=== PATIENT | female | born 1945 | race Caucasian/White ===

== ENCOUNTER 2016-06-18 08:10 | Outpatient (CLI) | payer MEDICARE, OTHER | END 2016-06-18 08:11 | disposition home or self-care (01) | DX: E78.5 Hyperlipidemia, unspecified (principal); R73.9 Hyperglycemia, unspecified; E03.9 Hypothyroidism, unspecified ==

== ENCOUNTER 2016-10-11 09:06 | Outpatient (CLI) | payer MEDICARE, OTHER ==
[2016-10-11 09:59] LABS: HEMOGLOBIN A1C 0.66 g/dL
== END 2016-10-11 09:07 | disposition home or self-care (01) ==
LOC: LAB 09:06
PROVIDERS: ATTEND Family Medicine
DX: E11.9 Type 2 diabetes mellitus without complications (principal)
CPT/HCPCS: 36415; 83036

== ENCOUNTER 2016-10-14 14:35 | Outpatient (CLI) | payer MEDICARE, OTHER ==
[2016-10-18 10:13] LABS: TEST RESULT REPORT (())
== END 2016-10-14 14:36 | disposition home or self-care (01) ==
LOC: LAB.WCP 14:35
PROVIDERS: ATTEND Family Medicine
DX: B00.9 Herpesviral infection, unspecified (principal)
CPT/HCPCS: 81599

== ENCOUNTER 2016-10-30 10:33 | Outpatient (CLI) | payer MEDICARE, OTHER ==
--- NOTE | 2016-10-31 13:52 | Mammography Report ---
DIGITAL SCREENING MAMMOGRAM: 10/30/2016 CLINICAL INDICATION: A 71-year-old with personal history of benign right breast biopsy, for screening . COMPARISON: 07/2014. TECHNIQUE: Routine CC and MLO projections were obtained of the breasts. FINDINGS: The breasts again demonstrate heterogeneously dense fibroglandular parenchyma. Postbiopsy changes in the right breast are stable. Coarse and punctate, typically benign calcifications are pres ent. No suspicious masses, clustered microcalcifications, or regions of architectural distortion are identified. IMPRESSION: BENIGN FINDINGS. RECOMMENDATION: ROUTINE ANNUAL SCREENING UNLESS OTHERWISE CLINICALLY INDICATED. BIRADS CATEGORY 2-BENIGN FINDINGS. STANDARD QUALIFYING STATEMENTS 1. This examination was reviewed with the aid of Computer-Aided Detection (CAD). 2. A negative or benign imaging report should not delay biopsy if clinically suspicious findings are present. Consider surgical consultation if warranted. More than 5% of cancers are not identified by i maging. 3. Dense breasts may obscure an underlying neoplasm. JOB #: [id number] EXT JOB #:[id number]
== END 2016-10-30 10:34 | disposition home or self-care (01) ==
LOC: DI.N 10:33
PROVIDERS: ATTEND Family Medicine
DX: Z12.31 Encounter for screening mammogram for malignant neoplasm of breast (principal)
CPT/HCPCS: 77067

== ENCOUNTER 2018-01-25 08:55 | Outpatient (CLI) | payer MEDICARE, OTHER ==
[2018-01-25 13:42] LABS: BASOPHILS % (AUTO) 0.7 %; EOSINOPHILS # (AUTO) 0.2 10^3/uL (0.0-0.7); EOSINOPHILS % (AUTO) 2.9 %; HGB - HEMOGLOBIN 14.2 g/dL (12.0-16.0); LYMPHOCYTES % (AUTO) 37.7 %; MEAN CORPUSCULAR HEMOGLOBIN 31.3 pg (27.0-31.0); MEAN CORPUSCULAR HGB CONC 33.6 g/dL (32.0-36.0); MEAN CORPUSCULAR VOLUME 92.9 fL (81.0-99.0); MEAN PLATELET VOLUME 8.3 fL (7.9-10.8); MONOCYTES # (AUTO) 0.3 10^3/uL (0.0-1.0); MONOCYTES % (AUTO) 6.6 %; NEUTROPHILS # (AUTO) 2.7 10^3/uL (1.5-6.6); NEUTROPHILS % (AUTO) 52.1 %; PLT - PLATELET COUNT 255 10^3/uL (130-450); RED BLOOD COUNT 4.53 10^6/uL (4.20-5.40); WHITE BLOOD COUNT 5.3 x10^3/uL (4.8-10.8)
[2018-01-25 14:01] LABS: ALBUMIN 4.2 g/dL (3.2-5.5); ALBUMIN/GLOBULIN RATIO 1.3 (1.0-2.2); ALKALINE PHOSPHATASE 79 IU/L (42-121); ALT ALANINE AMINOTRANSFERASE 35 IU/L (10-60); AST ASPARTATE AMINOTRANSFERASE 32 IU/L (10-42); BILIRUBIN,TOTAL 0.4 mg/dL (0.2-1.0); BUN - BLOOD UREA NITROGEN 13 mg/dL (6-20); CALCIUM 9.3 mg/dL (8.5-10.3); CARBON DIOXIDE - CO2 27 mmol/L (21-32); CHLORIDE 104 mmol/L (101-111); CHOL/HDL RATIO 4.6 (<4.4); CHOLESTEROL 239 mg/dL; CREATININE 0.7 mg/dL (0.4-1.0); GFR - MDRD 82 (>89); GLUCOSE 140 mg/dL (70-100); HDL CHOLESTEROL 52 mg/dL; LDL CHOLESTEROL,CALCULATED 141 mg/dL; LDL/HDL RATIO 2.7 (<4.4); SODIUM 138 mmol/L (135-145); TOTAL PROTEIN 7.5 g/dL (6.7-8.2); VLDL CHOLESTEROL 46 mg/dL
[2018-01-25 14:45] LABS: HB2 TOTAL 15.1 g/dL; HEMOGLOBIN A1C 0.72 g/dL; HEMOGLOBIN A1C % 6.5 % (4.6-6.2)
== END 2018-01-25 08:56 | disposition home or self-care (01) ==
LOC: LAB.WCP 08:55
PROVIDERS: ATTEND Family Medicine
DX: I10 Essential (primary) hypertension (principal); E11.9 Type 2 diabetes mellitus without complications; E78.5 Hyperlipidemia, unspecified; E03.9 Hypothyroidism, unspecified
CPT/HCPCS: 36415; 80053; 80061; 83036; 83721; 84443; 85025

== ENCOUNTER 2018-03-11 10:24 | Outpatient (CLI) | payer MEDICARE, OTHER ==
--- NOTE | 2018-03-11 16:33 | DEXA Report ---
Reason: ASYMPTOMATIC POSTMENOPAUSAL STATUS Procedure Date: 03/11/2018 Accession Number: [id number] / [id number] Procedure: DEX - Dexa Spine and/or Hip CPT Code: FULL RESULT: EXAM: Dexa Spine and/or Hip DATE: 03/11/2018 11:09 AM CLINICAL HISTORY: ASYMPTOMATIC POSTMENOPAUSAL STATUS TECHNIQUE: Dual energy x-ray absorptiometry (DXA) was performed on a [employer] System. Regions measured are the AP Spine, femoral neck, and if needed forearm. COMPARISON: None. In accordance with the International Society for Clinical Densitometry (ISCD) guidelines, data from previous exams may be reanalyzed using current recommendations and techniques. This is done to allow a more accurate basis for comparison with the current study. FINDINGS: The data for the lumbar spine is as follows: BMD (g/cm/cm) T-SCORE Z-SCORE REGION L1 1.066 -0.5 0.3 L2 1.414 1.8 2.6 L3 1.035 -1.4 -0.5 L4 1.057 -1.2 -0.3 TOTAL 1.137 -0.4 0.5 NOTE: All evaluable vertebrae are used for classification The data for the hip is as follows: BMD (g/cm/cm) T-SCORE Z-SCORE REGION Neck 0.851 -1.3 -0.1 TOTAL 0.887 -1.0 0.1 NOTE: The femoral neck or total proximal femur, whichever is lowest, is used for classification. IMPRESSION: THE WHO CLASSIFICATION BASED ON THE INTERNATIONAL REFERENCE STANDARD IS OSTEOPENIA. THE FRACTURE RISK IS INCREASED. RECOMMENDATION: Patients with diagnosis of osteoporosis or osteopenia should have regular bone mineral density assessment. For those eligible for Medicare, routine testing is allowed once every 2 years. Testing frequency can be increased for patients who have rapidly progressing disease or for those who are receiving medical therapy to restore bone mass. COMMENT: World Health Organization (WHO) definitions for osteoporosis and osteopenia: NORMAL BMD: T-score at -1.0 or higher, fracture risk is low OSTEOPENIA BMD: T-score between -1.0 and -2.5, fracture risk is increased. OSTEOPOROSIS BMD: T-score at -2.5 or lower, fracture risk is high. National Osteoporosis Foundation recommends: 1. Obtain adequate dietary calcium (at least 1200 mg per day) and vitamin D (400-800 international units per day). 2. Participate, as appropriate, in regular weightbearing and muscle-strengthening exercise. 3. Avoid tobacco use and reduce alcohol and caffeine intake. 4. For more detailed information see the website at www.NOF.org.
== END 2018-03-11 10:25 | disposition home or self-care (01) ==
LOC: DI 10:24
PROVIDERS: ATTEND Family Medicine
DX: M85.89 Other specified disorders of bone density and structure, multiple sites (principal); Z78.0 Asymptomatic menopausal state
CPT/HCPCS: 77080

== ENCOUNTER 2019-05-04 08:18 | Outpatient (CLI) | payer MEDICARE, OTHER ==
[2019-05-04 12:37] LABS: BASOPHILS % (AUTO) 0.4 %; EOSINOPHILS # (AUTO) 0.2 10^3/uL (0.0-0.7); EOSINOPHILS % (AUTO) 3.3 %; HGB - HEMOGLOBIN 13.6 g/dL (12.0-16.0); LYMPHOCYTES # (AUTO) 1.6 10^3/uL (1.5-3.5); LYMPHOCYTES % (AUTO) 35.2 %; MEAN CORPUSCULAR HEMOGLOBIN 30.8 pg (27.0-31.0); MEAN CORPUSCULAR HGB CONC 31.3 g/dL (32.0-36.0); MEAN CORPUSCULAR VOLUME 98.6 fL (81.0-99.0); MEAN PLATELET VOLUME 10.7 fL (7.9-10.8); MONOCYTES # (AUTO) 0.3 10^3/uL (0.0-1.0); MONOCYTES % (AUTO) 7.2 %; NEUTROPHILS # (AUTO) 2.4 10^3/uL (1.5-6.6); NEUTROPHILS % (AUTO) 53.5 %; PLT - PLATELET COUNT 245 10^3/uL (130-450); RED BLOOD COUNT 4.41 10^6/uL (4.20-5.40); RED CELL DISTRIBUTION WIDTH 12.7 % (12.0-15.0); WHITE BLOOD COUNT 4.6 x10^3/uL (4.8-10.8)
[2019-05-04 13:03] LABS: ALBUMIN 4.1 g/dL (3.2-5.5); ALBUMIN/GLOBULIN RATIO 1.2 (1.0-2.2); ALKALINE PHOSPHATASE 74 IU/L (42-121); ALT ALANINE AMINOTRANSFERASE 48 IU/L (10-60); AST ASPARTATE AMINOTRANSFERASE 41 IU/L (10-42); BILIRUBIN,TOTAL 0.8 mg/dL (0.2-1.0); BUN - BLOOD UREA NITROGEN 14 mg/dL (6-20); CALCIUM 9.1 mg/dL (8.5-10.3); CARBON DIOXIDE - CO2 27 mmol/L (21-32); CHLORIDE 107 mmol/L (101-111); CHOL/HDL RATIO 4.5 (<4.4); CHOLESTEROL 214 mg/dL; CREATININE 0.8 mg/dL (0.4-1.0); GFR - MDRD 70 (>89); GLUCOSE 126 mg/dL (70-100); HDL CHOLESTEROL 48 mg/dL; LDL CHOLESTEROL,CALCULATED 137 mg/dL; LDL/HDL RATIO 2.9 (<4.4); SODIUM 141 mmol/L (135-145); TOTAL PROTEIN 7.4 g/dL (6.7-8.2); VLDL CHOLESTEROL 29 mg/dL
[2019-05-04 13:07] LABS: HB2 TOTAL 13.8 g/dL; HEMOGLOBIN A1C 0.68 g/dL; HEMOGLOBIN A1C % 6.7 % (4.6-6.2)
[2019-05-04 13:12] LABS: THYROID STIMULATING HORMONE 2.15 uIU/mL (0.34-5.60)
[2019-05-04 13:14] LABS: FREE T4 (FREE THYROXINE) 1.02 ng/dL (0.58-1.64)
== END 2019-05-04 23:59 | disposition home or self-care (01) ==
LOC: LAB.WCP 08:18
PROVIDERS: ATTEND Family Medicine
DX: E11.9 Type 2 diabetes mellitus without complications (principal); I10 Essential (primary) hypertension; E03.9 Hypothyroidism, unspecified
CPT/HCPCS: 36415; 80053; 80061; 82043; 83036; 83721; 84439; 84443; 85025

== ENCOUNTER 2020-12-04 08:00 | Outpatient (CLI) | payer MEDICARE, OTHER ==
[2020-12-04 13:01] LABS: BASOPHILS % (AUTO) 0.6 %; EOSINOPHILS # (AUTO) 0.1 10^3/uL (0.0-0.7); EOSINOPHILS % (AUTO) 2.7 %; HCT - HEMATOCRIT 43.5 % (37.0-47.0); HGB - HEMOGLOBIN 14.1 g/dL (12.0-16.0); LYMPHOCYTES # (AUTO) 1.9 10^3/uL (1.5-3.5); LYMPHOCYTES % (AUTO) 39.7 %; MEAN CORPUSCULAR HEMOGLOBIN 30.9 pg (27.0-31.0); MEAN CORPUSCULAR HGB CONC 32.4 g/dL (32.0-36.0); MEAN CORPUSCULAR VOLUME 95.2 fL (81.0-99.0); MEAN PLATELET VOLUME 10.1 fL (7.9-10.8); MONOCYTES # (AUTO) 0.4 10^3/uL (0.0-1.0); MONOCYTES % (AUTO) 8.4 %; NEUTROPHILS # (AUTO) 2.3 10^3/uL (1.5-6.6); NEUTROPHILS % (AUTO) 48.6 %; PLT - PLATELET COUNT 254 10^3/uL (130-450); RED BLOOD COUNT 4.57 10^6/uL (4.20-5.40); RED CELL DISTRIBUTION WIDTH 12.2 % (12.0-15.0); WHITE BLOOD COUNT 4.7 x10^3/uL (4.8-10.8)
[2020-12-04 13:19] LABS: ESTIMATED AVERAGE GLUCOSE 157 mg/dL (70-100); HEMOGLOBIN A1c% 7.1 % (4.27-6.07)
[2020-12-04 13:25] LABS: ALBUMIN 4.4 g/dL (3.2-5.5); ALBUMIN/GLOBULIN RATIO 1.5 (1.0-2.2); ALKALINE PHOSPHATASE 88 IU/L (42-121); ALT ALANINE AMINOTRANSFERASE 45 IU/L (10-60); AST ASPARTATE AMINOTRANSFERASE 40 IU/L (10-42); BILIRUBIN,TOTAL 0.8 mg/dL (0.2-1.0); BUN - BLOOD UREA NITROGEN 11 mg/dL (6-20); CALCIUM 9.3 mg/dL (8.5-10.3); CARBON DIOXIDE - CO2 25 mmol/L (21-32); CHLORIDE 104 mmol/L (101-111); CHOL/HDL RATIO 4.4 (<4.4); CHOLESTEROL 230 mg/dL; CREATININE 0.7 mg/dL (0.4-1.0); GFR - MDRD 81 (>89); GLUCOSE 162 mg/dL (70-100); HDL CHOLESTEROL 52 mg/dL; LDL CHOLESTEROL,CALCULATED 140 mg/dL; LDL/HDL RATIO 2.7 (<4.4); POTASSIUM 3.8 mmol/L (3.5-5.0); SODIUM 139 mmol/L (135-145); TOTAL PROTEIN 7.4 g/dL (6.7-8.2); TRIGLYCERIDES 191 mg/dL; VLDL CHOLESTEROL 38 mg/dL
[2020-12-04 13:26] LABS: CREATININE,URINE 92.9 mg/dL; MICROALBUM/CREATININE RATIO,UR 21.5 ug/mg (<30.0)
[2020-12-04 13:27] LABS: THYROID STIMULATING HORMONE 0.94 uIU/mL (0.34-5.60)
[2020-12-05 12:47] LABS: HEPATITIS C ANTIBODY NON-REACTIVE (NON-REACTIVE)
== END 2020-12-04 23:59 | disposition home or self-care (01) ==
LOC: LAB.WCP 08:00
PROVIDERS: ATTEND Family Medicine
DX: Z01.84 Encounter for antibody response examination (principal); E11.9 Type 2 diabetes mellitus without complications
CPT/HCPCS: 36415; 80053; 80061; 82043; 82570; 83036; 83721; 84443; 85025; 86803

== ENCOUNTER 2021-06-04 11:00 | Outpatient (CLI) | payer MEDICARE, OTHER | END 2021-06-04 23:59 | disposition home or self-care (01) | LOC: LAB.N 11:00 | PROVIDERS: ATTEND Physician Assistant Medical | DX: N30.00 Acute cystitis without hematuria (principal) | CPT/HCPCS: 87086 ==

== ENCOUNTER 2021-06-07 08:00 | Outpatient (CLI) | payer MEDICARE, OTHER | END 2021-06-07 23:59 | LOC: LAB.N 08:00 | PROVIDERS: ATTEND Physician Assistant | DX: R39.9 Unspecified symptoms and signs involving the genitourinary system (principal) | CPT/HCPCS: 87086 ==

== ENCOUNTER 2023-09-12 14:22 | Emergency (ER) | payer MEDICARE, OTHER ==
--- NOTE | 2023-09-12 14:52 | ED Physician Documentation ---
PD HPI ABD PAIN - Stated complaint Stated Complaint: BACK PX - Chief complaint Chief Complaint: Abd Pain - History obtained from History obtained from: Patient - Additional information Additional information: This is a relatively healthy 78-year-old woman with history of pacemaker. Hypothyroidism, and remote hysterectomy who developed left flank pain rating to the left groin suddenly this morning. With that she had a sensation of having to have a bowel movement but only had a small bowel movement. She tried a laxative which was unhelpful. Subsequently tried some ibuprofen which was minimally helpful. She denies urinary complaints. No fevers. This is nothing she is ever had before. No history of renal colic. Has never had a colonoscopy. PD PAST MEDICAL HISTORY - Past Medical History Past Medical History: Yes Cardiovascular: Hypertension, High cholesterol, Arrhythmia Endocrine/Autoimmune: Type 2 diabetes, HyPOthyroidism Musculoskeletal: Osteoarthritis - Past Surgical History Past Surgical History: Yes General: Other /[employer]: section Cardiovascular: Pacemaker - Present Medications Home Medications: Ambulatory Orders Medication Instructions Recorded Confirmed Levothyroxine [Synthroid] 88 mcg PO QDAC 11/27/15 01/04/21 Valacyclovir HCl [Valtrex] 500 mg PO BID PRN 01/04/21 01/04/21 HYDROcod/ACETAM 5/325 [[place] 5/325] 1 - 2 tab PO Q6H PRN #15 tablet 09/12/23 Ondansetron Odt [Zofran] 4 mg TL Q6H PRN #10 tablet 09/12/23 - Allergies Allergies/Adverse Reactions: Allergies Allergy/AdvReac Type Severity Reaction Status Date / Time Penicillins Allergy Unknown Verified 09/12/23 14:36 - Social History Does the pt smoke?: No Smoking Status: Never smoker Does the pt drink ETOH?: No Does the pt have substance abuse?: No - Immunizations Immunizations are current?: No Immunizations: TDAP >10years/unknown PD ED PE NORMAL - Vitals Vital signs reviewed: Yes - General General: Alert and oriented X 3, No acute distress - Cardiac Cardiac: RRR, No murmur - Respiratory Respiratory: No respiratory distress, Clear bilaterally - Abdomen Abdomen: Normal bowel sounds, Soft, Other (Mild tenderness in the left lower quadrant without surgical signs, also mild left flank tenderness. No shingles rash.) - Neuro Neuro: Alert and oriented X 3, Normal speech Results - Vitals Vitals: Vital Signs - 24 hr 09/12/23 09/12/23 14:29 14:36 Temperature 36.5 C 36.5 C Heart Rate 70 70 Respiratory 14 14 Rate Blood Pressure 200/95 H 200/95 H O2 Saturation 96 96 Oxygen O2 Source Room air - Labs Labs: Laboratory Tests 09/12/23 09/12/23 09/12/23 15:00 15:00 15:38 WBC 9.8 RBC 4.82 Hgb 14.4 Hct 45.3 MCV 94.0 MCH 29.9 MCHC 31.8 L RDW 12.0 Plt Count 236 MPV 10.0 Neut # (Auto) 8.2 H Lymph # (Auto) 1.2 L Cloud # (Auto) 0.4 Eos # (Auto) 0.0 Baso # (Auto) 0.0 Absolute Nucleated RBC 0.00 Nucleated RBC % 0.0 Sodium 133 L Potassium 4.0 Chloride 98 L Carbon Dioxide 26 Anion Gap 9.0 BUN 13 Creatinine 0.7 Estimated GFR (MDRD) 81 L Glucose 258 H Calcium 10.0 Total Bilirubin 0.6 AST 40 ALT 41 Alkaline Phosphatase 95 Total Protein 7.7 Albumin 4.6 Globulin 3.1 Albumin/Globulin Ratio 1.5 Lipase < 10 L Urine Color YELLOW Urine Clarity HAZY Urine pH 7.0 Ur Specific [place] 1.010 Urine Protein NEGATIVE Urine Glucose (UA) 500 H Urine Ketones 15 H Urine Occult Blood LARGE H Urine Nitrite NEGATIVE Urine Bilirubin NEGATIVE Urine Urobilinogen 0.2 (NORMAL) Ur Leukocyte Esterase MODERATE H Urine RBC 11-25 H Urine WBC 6-10 H Urine WBC Clumps PRESENT Ur Epithelial Cells FEW Transitional Ur Squamous Epith Cells MOD Squamous H Urine Bacteria Rare Ur Microscopic Review INDICATED Urine Culture Comments NOT INDICATED - Rads (name of study) CT angiography abdomen and pelvis showing 3 mm left UVJ stone with multiple incidental findings discussed with patient. Relevant Findings:: Final report received, EMP independent interpretation of test PD Medical Decision Making - ED course ED course: She presents with sudden onset left flank pain radiating to the groin. She is mildly tender in the left lower quadrant and over the left flank. Differential diagnosis would include diverticulitis, renal colic, pyelonephritis is less likely given the sudden onset and lack of urinary symptoms, and vascular emergency such as dissection or AAA. Subsequent testing demonstrated a normal CBC, CMP really only remarkable for a blood sugar of 258. She had a contaminated urinalysis, but her symptoms are not suggestive of any infectious process i.e. cystitis or pyelonephritis and with no elevation of the white count I do not think we need to recollect or perform a culture. CT demonstrated a 3 mm causative left UVJ stone with incidental findings that were discussed with the patient. Her pain was gone after 15 mg of IV Toradol and 0.5 mg of IV Dilaudid. Given urine strainers and discussed collecting stones and return precautions. Departure - Departure Disposition: 01 Home, Self Care Clinical Impression: Renal colic Condition: Good Record reviewed to determine appropriate education?: Yes Instructions: ED Stone Renal W Colic Prescriptions: HYDROcod/ACETAM 5/325 [[place] 5/325] 1 - 2 tab PO Q6H PRN #15 tablet PRN Reason: Pain Ondansetron Odt [Zofran] 4 mg TL Q6H PRN #10 tablet PRN Reason: Nausea / Vomiting Comments: Today you were found to have a 3 mm stone at the left ureterovesicular junction, "a kidney stone." This is a fairly small stone and should pass on its own without specific intervention. Drink plenty of fluids and follow-up with your primary care physician for reevaluation. There were incidental findings on the CT notably: 1. Moderate hiatal hernia 2. Lap-Band 3. Large gallstone 4. Focal L5-S1 degenerative change 5. Diverticulosis 6. Status post hysterectomy. I sent your prescription electronically to the [facility] in [place]. Please return if pain is uncontrolled or if you develop any infectious symptoms such as shaking chills, high fevers, or other worsening symptoms or new symptoms. Do follow-up with your doctor and in the interim strain your urine and take any results and material to them for potential analysis. I am prescribing a short course of narcotic pain medication for you. These are potentially dangerous and addictive medications that should be used carefully. These medications may constipate you. Take an [id number] stool softener (docusate) twice daily with plenty of water while taking these medications. If you go 24 hours without a bowel movement, take [id number] miralax, per package instructions. Do not drink or drive while taking these medications. If you received narcotic or sedating medications while in the emergency department, do not drive for 24 hours. Store this medication in a safe, secure place and out of reach of children. It is a violation of federal law to give or sell this medication to another person or to use in a manner other than prescribed. The ED will not refill narcotic prescriptions, including prescriptions lost or stolen. To dispose of unwanted medications: 1. [facility] provides a drop box for medication in pill form only (no liquids) 8:00 am to 4:30 p.m. Thursday-Thursday in the lobby of the [facility], [address] [place] [address]. Empty pills into ziplock bag before disposal. Call [phone] for information. 2.[employer] is a free service available to all [facility] residents. Go to [email or web address] Note that many narcotic pain relievers also contain Tylenol/acetaminophen. Please ensure that your total dose of acetaminophen from all sources does not exceed 3 g (3000 mg) per day. Forms: PCP List
[2023-09-12] MEDS: SODIUM CHLORIDE 0.9% 1,000 ML IV STA (15:04)
[2023-09-12 15:05] LABS: BASOPHILS % (AUTO) 0.2 %; EOSINOPHILS % (AUTO) 0.1 %; HCT - HEMATOCRIT 45.3 % (37.0-47.0); HGB - HEMOGLOBIN 14.4 g/dL (12.0-16.0); LYMPHOCYTES # (AUTO) 1.2 10^3/uL (1.5-3.5); LYMPHOCYTES % (AUTO) 11.9 %; MEAN CORPUSCULAR HEMOGLOBIN 29.9 pg (27.0-31.0); MEAN CORPUSCULAR HGB CONC 31.8 g/dL (32.0-36.0); MONOCYTES # (AUTO) 0.4 10^3/uL (0.0-1.0); MONOCYTES % (AUTO) 4.4 %; NEUTROPHILS # (AUTO) 8.2 10^3/uL (1.5-6.6); NEUTROPHILS % (AUTO) 83.1 %; PLT - PLATELET COUNT 236 10^3/uL (130-450); RED BLOOD COUNT 4.82 10^6/uL (4.20-5.40); WHITE BLOOD COUNT 9.8 x10^3/uL (4.8-10.8)
[2023-09-12] MEDS: KETOROLAC 15 MG/ML VIAL IVP STA (15:05)
[2023-09-12] MEDS: HYDROmorphone 1 MG/ML CARPUJECT IVP STA (15:06)
[2023-09-12 15:19] LABS: ALBUMIN 4.6 g/dL (3.2-5.5); ALBUMIN/GLOBULIN RATIO 1.5 (1.0-2.2); ALKALINE PHOSPHATASE 95 IU/L (42-121); ALT ALANINE AMINOTRANSFERASE 41 IU/L (10-60); AST ASPARTATE AMINOTRANSFERASE 40 IU/L (10-42); BILIRUBIN,TOTAL 0.6 mg/dL (0.2-1.0); BUN - BLOOD UREA NITROGEN 13 mg/dL (6-20); CARBON DIOXIDE - CO2 26 mmol/L (21-32); CHLORIDE 98 mmol/L (101-111); CREATININE 0.7 mg/dL (0.6-1.3); GFR - MDRD 81 (>89); GLUCOSE 258 mg/dL (74-104); SODIUM 133 mmol/L (135-145); TOTAL PROTEIN 7.7 g/dL (6.4-8.9)
[2023-09-12 15:21] LABS: LIPASE < 10 U/L (11-82)
[2023-09-12] MEDS ORDERED: iohexoL-300 100 ML VIAL ONE (15:21)
[2023-09-12] MEDS: iohexoL-300 100 ML VIAL IVP ONE (15:51)
[2023-09-12 16:01] LABS: BILIRUBIN,URINE NEGATIVE (NEGATIVE); GLUCOSE, URINE (UA) 500 mg/dL (NEGATIVE); KETONES,URINE (UA) 15 mg/dL (NEGATIVE); LEUKOCYTE ESTERASE, URINE MODERATE (NEGATIVE); NITRITE,URINE NEGATIVE (NEGATIVE); OCCULT BLOOD,URINE LARGE (NEGATIVE); PROTEIN,URINE NEGATIVE (NEGATIVE); UROBILINOGEN,URINE 0.2 (NORMAL) E.U./dL (NORMAL)
[2023-09-12 16:02] LABS: CLARITY,URINE HAZY (CLEAR)
--- NOTE | 2023-09-12 16:14 | CT Report ---
PROCEDURE: Angio Abdomen/Pelvis INDICATIONS: L abd pain CONTRAST: 100ml omni 300 TECHNIQUE: After the administration of intravenous contrast, 2.5 mm thick sections acquired from the diaphragm t o the symphysis. 10 mm maximum-intensity projection (MIP) reformats were then acquired. For radiati on dose reduction, the following was used: automated exposure control, adjustment of mA and/or kV ac cording to patient size. COMPARISON: None. FINDINGS: Image quality: Excellent. Aorta: Negative for aneurysm or dissection. Mesenteric arteries: Celiac trunk, superior and inferior mesenteric arteries appear patent. Right pelvic arteries: No significant abnormality of the right pelvic arteries can be seen. Left pelvic arteries: Within normal limits. Extravascular soft tissues: Lung bases are clear. Heart size is normal. There is a moderate hiatal hernia. Liver and spleen are normal in size and enhancement. Gallbladder demonstrates a large gallstone with in its lumen. No additional CT findings of cholecystitis are seen.. Biliary system is non dilated. Pancreas enhances normally. No adrenal nodules. There is mild left-sided hydronephrosis and hydroureter. There is mild left-sided perinephric fat str anding. There is an obstructing stone seen at the left ureterovesicular junction, as on series 4 imag e 135 and on series 6 image 103, measuring 3 mm. No nonobstructing kidney stones are seen. Non opacified bowel loops are normal in wall thickness and caliber. No free fluid or air. Postopera tive change with a lap band that can be seen. Diverticulosis can be seen, without amber findings of a ctive diverticulitis. No retroperitoneal or mesenteric adenopathy. No ventral hernias. This patient is status post hysterectomy. No adnexal masses can be seen. No suspicious bony lesions. No vertebral body compression fractures. Focal L5-S1 degenerative nicole e is seen. Milder degenerative changes are seen elsewhere. IMPRESSION: No significant aortic abnormality can be seen. No significant abnormality of the mesenteric arteries can be seen. There is a 3 mm obstructing stone seen at the left ureterovesicular junction. Additional findings: Moderate hiatal hernia Lap band Large gallstone Focal L5-S1 degenerative change Diverticulosis, without findings of active diverticulitis. Hysterectomy Reviewed by: Jayjay Vargas MD on 09/12/2023 3:13 PM AKDT Approved by: Jayjay Vargas MD on 09/12/2023 3:13 PM ANDREW Station ID: [id number]
[2023-09-12 16:15] LABS: EPITHELIAL CELLS,UR FEW Transitional /HPF (<= Few); SQUAMOUS EPITHELIAL CELL,UR MOD Squamous (<= Few); WBC CLUMPS,URINE PRESENT
[2023-09-12 16:16] LABS: BACTERIA,URINE Rare /HPF (None Seen)
[2023-09-12 16:48] VITALS: BP 164/71; O2SAT 95
== END 2023-09-12 16:39 | disposition home or self-care (01) ==
LOC: ED 14:22
DX: N20.0 Calculus of kidney (principal); I10 Essential (primary) hypertension; E78.00 Pure hypercholesterolemia, unspecified; E11.9 Type 2 diabetes mellitus without complications; E03.9 Hypothyroidism, unspecified; Z79.899 Other long term (current) drug therapy; Z95.0 Presence of cardiac pacemaker
CPT/HCPCS: 36415; 74174; 80053; 81001; 83690; 85025; 96374; 96375; 99284; 99285; J1170; Q9967; 81003; 87086